=== PATIENT | female | born 1945 | race Caucasian/White ===

== ENCOUNTER → 2023-11-24 14:21 | Outpatient (REF) | payer MEDICARE, SELFPAY | LOC: RAD 14:21 | PROVIDERS: ATTENDING PHYSICIAN Physician Assistant Medical | DX: Z00.00 Encounter for general adult medical examination without abnormal findings (principal); M85.80 Other specified disorders of bone density and structure, unspecified site; E03.9 Hypothyroidism, unspecified; Z12.31 Encounter for screening mammogram for malignant neoplasm of breast; M81.0 Age-related osteoporosis without current pathological fracture | CPT/HCPCS: 77080 ==

== ENCOUNTER → 2024-01-06 09:16 | Outpatient (REF) | payer MEDICARE, SELFPAY | LOC: RAD 09:16 | PROVIDERS: ATTENDING PHYSICIAN Physician Assistant Medical | DX: E03.9 Hypothyroidism, unspecified (principal); Z87.891 Personal history of nicotine dependence | CPT/HCPCS: 76770 ==

== ENCOUNTER → 2024-03-22 12:46 | Outpatient (REF) | payer MEDICARE, SELFPAY | LOC: WDC 12:46 | PROVIDERS: ATTENDING PHYSICIAN Physician Assistant Medical | DX: Z12.31 Encounter for screening mammogram for malignant neoplasm of breast (principal) | CPT/HCPCS: 77063; 77067 ==

== ENCOUNTER → 2024-03-30 14:33 | Outpatient (REF) | payer MEDICARE, SELFPAY | LOC: RAD 14:33 | PROVIDERS: ATTENDING PHYSICIAN Physician Assistant Medical | DX: E78.2 Mixed hyperlipidemia (principal) | CPT/HCPCS: 75571 ==

== ENCOUNTER → 2024-07-30 13:10 | Outpatient (REF) | payer MEDICARE, SELFPAY | LOC: HWRAD 13:10 | PROVIDERS: ATTENDING PHYSICIAN Internal Medicine Critical Care Medicine; FAMILY PHYSICIAN Physician Assistant Medical | DX: R91.8 Other nonspecific abnormal finding of lung field (principal) | CPT/HCPCS: 71250 ==

== ENCOUNTER → 2024-09-21 14:55 | Outpatient (REF) | payer MEDICARE, SELFPAY | LOC: HWRAD 14:55 | PROVIDERS: ATTENDING PHYSICIAN Physician Assistant Medical | DX: R59.9 Enlarged lymph nodes, unspecified (principal) | CPT/HCPCS: 76536 ==

== ENCOUNTER → 2025-01-31 13:22 | Outpatient (REF) | payer MEDICARE, SELFPAY | LOC: HWRAD 13:22 | PROVIDERS: ATTENDING PHYSICIAN Internal Medicine Critical Care Medicine; FAMILY PHYSICIAN Physician Assistant Medical | DX: R91.8 Other nonspecific abnormal finding of lung field (principal); Z87.891 Personal history of nicotine dependence | CPT/HCPCS: 71250 ==